=== PATIENT | male | born 2000 | race Caucasian/White ===

== ENCOUNTER 2021-03-20 11:12 | Emergency (ER) | payer OTHER ==
[~2021-03-20] VITALS: Ht 162.6 cm; Wt 69.1 kg
--- NOTE | 2021-03-20 13:53 | REP ---
INDICATION: swollen red area concern for abscess, hip. COMPARISON: None. TECHNIQUE: Real-time sonographic evaluation of right lateral hip soft tissues performed at the site of redness and swelling. FINDINGS: A superficial subcutaneous hypoechoic structure probably represents a subcutaneous collection of complex fluid measuring 1.5 cm in diameter. IMPRESSION: Subcutaneous hypoechoic structure 1.5 cm in diameter likely represents a focal collection of complex fluid, possibly a small abscess or infected cyst. <Electronically signed by Kai Domingo > 03/20/21 [id number]
[2021-03-20] MEDS ORDERED: LIDOCAINE 1% MDV 20ML VIAL IM ONE (14:05)
[2021-03-20 14:50] VITALS: BP 129/83
[2021-03-22] MEDS ORDERED: DOXY100C37 PO (13:42)
== END 2021-03-20 14:52 | disposition home or self-care (01) ==
LOC: M ED 11:12
DX: L02.415 Cutaneous abscess of right lower limb (principal)